=== PATIENT | male | born 1975 | race Caucasian/White ===

== ENCOUNTER 2017-05-02 05:41 | Emergency (ER) | payer OTHER ==
[~2017-05-02] VITALS: Ht 182.9 cm; Wt 90.7 kg
[~2017-05-02 05:41] MED LIST: CEPH500 PO; CLIN150 PO; CRUTCH3 USE; DESO.25TC TOP; DIAZ5 PO; ERYT500 PO; HYDACE5 PO; META800 PO; METR250 PO; NAPR500 PO; OXYACE5T PO; PROACE100 PO; RXHYDACE PO; RXOXYACE PO; RXPROACE PO; RXPROM25 PO; TRAM50 PO
[2017-05-02 06:23] LABS: BASOPHILS ABSOLUTE AUTO 0.03 K/mm3 (0.00-0.23); BASOPHILS PERCENT AUTO 0 % (0-2); EOSINOPHILS ABSOLUTE AUTO 0.38 K/mm3 (0.00-0.68); EOSINOPHILS PERCENT AUTO 4 % (0-6); Hematocrit 42.4 % (37.0-53.0); Hemoglobin 14.8 g/dL (13.5-17.5); IMMATURE GRAN ABSOLUTE AUTO 0.03 K/mm3 (0.00-0.10); IMMATURE GRAN PERCENT AUTO 0 % (0-1); LYMPHOCYTES ABSOLUTE AUTO 3.23 K/mm3 (0.84-5.20); LYMPHOCYTES PERCENT AUTO 37 % (21-46); MONOCYTES ABSOLUTE AUTO 0.49 K/mm3 (0.16-1.47); MONOCYTES PERCENT AUTO 6 % (4-13); Mean Corpuscular HGB 33.5 pg (26.0-34.0); Mean Corpuscular HGB Conc 34.9 g/dL (31.5-36.5); Mean Corpuscular Volume 96 fL (80-100); Mean Platelet Volume 9.6 fL (9.1-12.4); NEUTROPHILS ABSOLUTE AUTO 4.68 K/mm3 (1.96-9.15); NEUTROPHILS PERCENT AUTO 53 % (41-73); Platelet Count 283 K/mm3 (150-400); RDW Coefficient Variation 12.4 % (11.7-14.2); RDW Standard Deviation 43.1 fL (35.1-46.3); Red Blood Cell Count 4.42 M/mm3 (4.30-5.90); White Blood Cell Count 8.84 K/mm3 (4.00-11.30)
[2017-05-02 06:44] LABS: Alanine Aminotransfer (ALT/SGP 31 U/L (12-78); Albumin, Blood 3.9 g/dL (3.4-5.0); Albumin/Globulin Ratio 1.1 (0.8-1.8); Alk Phos 93 U/L (50-136); Anion Gap 10 mmol/L (6-16); Aspartate Aminotrans (AST/SGOT 21 U/L (12-37); Bilirubin, Total 0.4 mg/dL (0.1-1.0); Blood Urea Nitrogen 16 mg/dL (8-24); Bun/Creatinine Ratio 17.2 (12.0-20.0); CO2, Blood 22 mmol/L (21-32); Calcium, Blood 9.2 mg/dL (8.5-10.1); Chloride, Blood 105 mmol/L (98-108); Creatinine, Blood 0.93 mg/dL (0.60-1.20); Globulin, Blood 3.7 g/dL (2.2-4.0); Glomerular Filtration Rate >60 (60-); Glucose, Blood 110 mg/dL (70-99); Potassium, Blood 3.7 mmol/L (3.5-5.5); Sodium, Blood 137 mmol/L (136-145); Total Protein, Blood 7.6 g/dL (6.4-8.2)
[2017-05-02] MEDS ORDERED: Carafate1 GM/10 ML PO (07:48)
[2017-05-02] MEDS ORDERED: Protonix40 MG PO (07:48)
[2017-05-02] MEDS ORDERED: Ultram50 MG PO (07:48)
== END 2017-05-02 08:02 | disposition home or self-care (01) ==
LOC: ER 05:41
PROVIDERS: Emergency Medicine
DX: R10.32 Left lower quadrant pain (principal); F17.200 Nicotine dependence, unspecified, uncomplicated; Z88.0 Allergy status to penicillin
CPT/HCPCS: 36415; 74176; 80053; 83690; 85025; 96361; 96374; 96375; 99284; J1170; J1885; J2405; J7030

== ENCOUNTER 2017-05-09 01:50 | Emergency (ER) | payer OTHER ==
[~2017-05-09] VITALS: Ht 182.9 cm; Wt 90.7 kg
[~2017-05-09 01:50] MED LIST changes: +Carafate1 GM/10 ML PO; +Protonix40 MG PO; +Ultram50 MG PO
[2017-05-09] MEDS ORDERED: VARE1 PO (02:06)
[2017-05-09 02:27] LABS: BASOPHILS ABSOLUTE AUTO 0.03 K/mm3 (0.00-0.23); BASOPHILS PERCENT AUTO 0 % (0-2); EOSINOPHILS ABSOLUTE AUTO 0.25 K/mm3 (0.00-0.68); EOSINOPHILS PERCENT AUTO 2 % (0-6); Hematocrit 38.1 % (37.0-53.0); Hemoglobin 13.3 g/dL (13.5-17.5); IMMATURE GRAN ABSOLUTE AUTO 0.03 K/mm3 (0.00-0.10); IMMATURE GRAN PERCENT AUTO 0 % (0-1); LYMPHOCYTES ABSOLUTE AUTO 1.69 K/mm3 (0.84-5.20); LYMPHOCYTES PERCENT AUTO 12 % (21-46); MONOCYTES ABSOLUTE AUTO 1.32 K/mm3 (0.16-1.47); MONOCYTES PERCENT AUTO 9 % (4-13); Mean Corpuscular HGB 33.3 pg (26.0-34.0); Mean Corpuscular HGB Conc 34.9 g/dL (31.5-36.5); Mean Corpuscular Volume 95 fL (80-100); Mean Platelet Volume 9.2 fL (9.1-12.4); NEUTROPHILS ABSOLUTE AUTO 10.87 K/mm3 (1.96-9.15); NEUTROPHILS PERCENT AUTO 77 % (41-73); Platelet Count 307 K/mm3 (150-400); RDW Coefficient Variation 12.2 % (11.7-14.2); RDW Standard Deviation 42.6 fL (35.1-46.3); White Blood Cell Count 14.19 K/mm3 (4.00-11.30)
[2017-05-09 02:38] LABS: Alanine Aminotransfer (ALT/SGP 29 U/L (12-78); Albumin, Blood 3.3 g/dL (3.4-5.0); Albumin/Globulin Ratio 0.8 (0.8-1.8); Alk Phos 93 U/L (50-136); Anion Gap 10 mmol/L (6-16); Aspartate Aminotrans (AST/SGOT 21 U/L (12-37); Bilirubin, Total 0.5 mg/dL (0.1-1.0); Blood Urea Nitrogen 7 mg/dL (8-24); Bun/Creatinine Ratio 8.7 (12.0-20.0); CO2, Blood 24 mmol/L (21-32); Calcium, Blood 8.6 mg/dL (8.5-10.1); Chloride, Blood 102 mmol/L (98-108); Creatinine, Blood 0.81 mg/dL (0.60-1.20); Globulin, Blood 4.2 g/dL (2.2-4.0); Glomerular Filtration Rate >60 (60-); Glucose, Blood 109 mg/dL (70-99); Potassium, Blood 3.5 mmol/L (3.5-5.5); Sodium, Blood 136 mmol/L (136-145); Total Protein, Blood 7.5 g/dL (6.4-8.2)
[2017-05-09] MEDS ORDERED: Zofran Odt4 MG PO (03:40)
== END 2017-05-09 03:55 | disposition home or self-care (01) ==
LOC: ER 01:50
PROVIDERS: Emergency Medicine
DX: R10.13 Epigastric pain (principal); F17.200 Nicotine dependence, unspecified, uncomplicated; Z88.0 Allergy status to penicillin; Z79.899 Other long term (current) drug therapy
CPT/HCPCS: 36415; 74022; 80053; 83690; 85025; 96374; 99283; J1630

== ENCOUNTER 2019-02-22 08:04 | Emergency (ER) | payer OTHER ==
[~2019-02-22] VITALS: Ht 182.9 cm; Wt 86.2 kg
[~2019-02-22 08:04] MED LIST changes: +VARE1 PO; +Zofran Odt4 MG PO
[2019-02-22 08:48] LABS: BASOPHILS ABSOLUTE AUTO 0.05 K/mm3 (0.00-0.23); BASOPHILS PERCENT AUTO 1 % (0-2); EOSINOPHILS ABSOLUTE AUTO 0.34 K/mm3 (0.00-0.68); EOSINOPHILS PERCENT AUTO 5 % (0-6); Hematocrit 38.7 % (37.0-53.0); Hemoglobin 13.4 g/dL (13.5-17.5); IMMATURE GRAN ABSOLUTE AUTO 0.03 K/mm3 (0.00-0.10); IMMATURE GRAN PERCENT AUTO 0 % (0-1); LYMPHOCYTES ABSOLUTE AUTO 2.08 K/mm3 (0.84-5.20); LYMPHOCYTES PERCENT AUTO 29 % (21-46); MONOCYTES ABSOLUTE AUTO 0.56 K/mm3 (0.16-1.47); MONOCYTES PERCENT AUTO 8 % (4-13); Mean Corpuscular HGB 34.4 pg (26.0-34.0); Mean Corpuscular HGB Conc 34.6 g/dL (31.5-36.5); Mean Corpuscular Volume 100 fL (80-100); Mean Platelet Volume 9.4 fL (9.1-12.4); NEUTROPHILS ABSOLUTE AUTO 4.21 K/mm3 (1.96-9.15); NEUTROPHILS PERCENT AUTO 58 % (41-73); Platelet Count 261 K/mm3 (150-400); RDW Coefficient Variation 11.8 % (11.7-14.2); RDW Standard Deviation 42.7 fL (35.1-46.3); Red Blood Cell Count 3.89 M/mm3 (4.30-5.90); White Blood Cell Count 7.27 K/mm3 (4.00-11.30)
[2019-02-22 09:01] LABS: Alanine Aminotransfer (ALT/SGP 22 U/L (12-78); Albumin, Blood 3.8 g/dL (3.4-5.0); Albumin/Globulin Ratio 1.1 (0.8-1.8); Alk Phos 86 U/L (50-136); Anion Gap 7 mmol/L (6-16); Aspartate Aminotrans (AST/SGOT 22 U/L (12-37); Bilirubin, Total 0.2 mg/dL (0.1-1.0); Blood Urea Nitrogen 17 mg/dL (8-24); Bun/Creatinine Ratio 20.2 (12.0-20.0); CO2, Blood 24 mmol/L (21-32); Calcium, Blood 8.5 mg/dL (8.5-10.1); Chloride, Blood 109 mmol/L (98-108); Creatinine, Blood 0.84 mg/dL (0.60-1.20); Globulin, Blood 3.4 g/dL (2.2-4.0); Glomerular Filtration Rate >60 (60-); Glucose, Blood 89 mg/dL (70-99); Potassium, Blood 3.6 mmol/L (3.5-5.5); Sodium, Blood 140 mmol/L (136-145); Total Protein, Blood 7.2 g/dL (6.4-8.2)
[2019-02-22] MEDS ORDERED: Prilosec Otc20 MG PO (09:47)
== END 2019-02-22 10:00 | disposition home or self-care (01) ==
LOC: ER 08:04
PROVIDERS: Emergency Medicine
DX: K27.9 Peptic ulcer, site unspecified, unspecified as acute or chronic, without hemorrhage or perforation (principal); F17.200 Nicotine dependence, unspecified, uncomplicated; Z88.0 Allergy status to penicillin
CPT/HCPCS: 36415; 80053; 83690; 85025; 96374; 99283-25; J2405

== ENCOUNTER 2019-03-29 17:07 | Emergency (ER) | payer OTHER ==
[~2019-03-29] VITALS: Ht 182.9 cm; Wt 90.7 kg
[~2019-03-29 17:07] MED LIST changes: +Prilosec Otc20 MG PO
[2019-03-29] MEDS ORDERED: KEFLEX500 MG PO (17:16)
[2019-03-29] MEDS ORDERED: Cleocin HCl150 MG PO (17:47)
[2019-03-29] MEDS ORDERED: Norco 5-325 Ta1 EACH PO (17:47)
== END 2019-03-29 17:51 | disposition home or self-care (01) ==
LOC: ER 17:07
DX: K04.7 Periapical abscess without sinus (principal); K02.9 Dental caries, unspecified; F17.200 Nicotine dependence, unspecified, uncomplicated
CPT/HCPCS: 41800; 99283-25

== ENCOUNTER 2019-08-31 08:47 | Emergency (ER) | payer OTHER ==
[~2019-08-31] VITALS: Ht 182.9 cm; Wt 90.7 kg
[~2019-08-31 08:47] MED LIST changes: +Cleocin HCl150 MG PO; +KEFLEX500 MG PO; +Norco 5-325 Ta1 EACH PO
[2019-08-31 10:49] LABS: BASOPHILS ABSOLUTE AUTO 0.02 K/mm3 (0.00-0.23); BASOPHILS PERCENT AUTO 0 % (0-2); EOSINOPHILS ABSOLUTE AUTO 0.06 K/mm3 (0.00-0.68); EOSINOPHILS PERCENT AUTO 1 % (0-6); Hematocrit 41.3 % (37.0-53.0); Hemoglobin 14.7 g/dL (13.5-17.5); IMMATURE GRAN ABSOLUTE AUTO 0.01 K/mm3 (0.00-0.10); IMMATURE GRAN PERCENT AUTO 0 % (0-1); LYMPHOCYTES ABSOLUTE AUTO 1.42 K/mm3 (0.84-5.20); LYMPHOCYTES PERCENT AUTO 16 % (21-46); MONOCYTES ABSOLUTE AUTO 0.68 K/mm3 (0.16-1.47); MONOCYTES PERCENT AUTO 8 % (4-13); Mean Corpuscular HGB 33.7 pg (26.0-34.0); Mean Corpuscular HGB Conc 35.6 g/dL (31.5-36.5); Mean Corpuscular Volume 95 fL (80-100); NEUTROPHILS ABSOLUTE AUTO 6.47 K/mm3 (1.96-9.15); NEUTROPHILS PERCENT AUTO 75 % (41-73); Platelet Count 243 K/mm3 (150-400); RDW Standard Deviation 42.3 fL (35.1-46.3); Red Blood Cell Count 4.36 M/mm3 (4.30-5.90); White Blood Cell Count 8.66 K/mm3 (4.00-11.30)
[2019-08-31 10:54] LABS: Source, Urine Clean Catch
[2019-08-31 11:01] LABS: Bilirubin, Urine Neg (Neg); Blood, Urine Neg (Neg); Glucose Qualitative, Urine Neg (Neg); Ketones, Urine 1+ (Neg); Leukocyte Esterase, Urine 1+ (Neg); Nitrite, Urine Neg (Neg); Protein, Urine 2+ (Neg); Urobilinogen, Urine 2+ (Normal)
[2019-08-31 11:10] LABS: Appearance, Urine Clear (Clear); Color, Urine Yellow (P-Yellow)
[2019-08-31 11:12] LABS: Bacteria Mod /hpf; Red Blood Cells, Urine 0-2 /hpf (0-2); Squamous Epithelial Cells Rare /hpf (Few)
[2019-08-31 11:13] LABS: Mucus Heavy (0-Heavy)
[2019-08-31 11:16] LABS: Alanine Aminotransfer (ALT/SGP 27 U/L (12-78); Albumin, Blood 3.8 g/dL (3.4-5.0); Albumin/Globulin Ratio 0.9 (0.8-1.8); Alk Phos 83 U/L (50-136); Anion Gap 10 mmol/L (6-16); Aspartate Aminotrans (AST/SGOT 23 U/L (12-37); Bilirubin, Total 0.5 mg/dL (0.1-1.0); Blood Urea Nitrogen 10 mg/dL (8-24); Bun/Creatinine Ratio 11.4 (12.0-20.0); CO2, Blood 22 mmol/L (21-32); Calcium, Blood 9.1 mg/dL (8.5-10.1); Chloride, Blood 105 mmol/L (98-108); Creatinine, Blood 0.88 mg/dL (0.60-1.20); Globulin, Blood 4.1 g/dL (2.2-4.0); Glomerular Filtration Rate >60 (60-); Glucose, Blood 122 mg/dL (70-99); Sodium, Blood 137 mmol/L (136-145); Total Protein, Blood 7.9 g/dL (6.4-8.2); Troponin I <0.015 ng/mL (0.000-0.040)
[2019-08-31] MEDS ORDERED: OMEP20ER PO (12:02)
[2019-08-31] MEDS ORDERED: SUCR1 PO (12:02)
== END 2019-08-31 12:14 | disposition home or self-care (01) ==
LOC: ER 08:47
PROVIDERS: Emergency Medicine
DX: R10.12 Left upper quadrant pain (principal); F17.210 Nicotine dependence, cigarettes, uncomplicated
CPT/HCPCS: 36415; 80053; 81001; 83690; 84484; 85025; 87086; 93005; 93010; 96361; 96374; 96375; 99284-25; J1170; J2405; J7120

== ENCOUNTER 2020-03-13 22:00 | Emergency (ER) | payer OTHER ==
[~2020-03-13] VITALS: Ht 182.9 cm; Wt 90.7 kg
[~2020-03-13 22:00] MED LIST changes: +OMEP20ER PO; +SUCR1 PO; +Sucralfate1 GM PO
[2020-03-13 23:14] LABS: BASOPHILS ABSOLUTE AUTO 0.05 K/mm3 (0.00-0.23); BASOPHILS PERCENT AUTO 0 % (0-2); EOSINOPHILS ABSOLUTE AUTO 0.26 K/mm3 (0.00-0.68); EOSINOPHILS PERCENT AUTO 2 % (0-6); Hematocrit 42.2 % (37.0-53.0); Hemoglobin 14.1 g/dL (13.5-17.5); IMMATURE GRAN ABSOLUTE AUTO 0.04 K/mm3 (0.00-0.10); IMMATURE GRAN PERCENT AUTO 0 % (0-1); LYMPHOCYTES ABSOLUTE AUTO 2.42 K/mm3 (0.84-5.20); LYMPHOCYTES PERCENT AUTO 20 % (21-46); MONOCYTES PERCENT AUTO 5 % (4-13); Mean Corpuscular HGB 32.9 pg (26.0-34.0); Mean Corpuscular HGB Conc 33.4 g/dL (31.5-36.5); Mean Corpuscular Volume 98 fL (80-100); Mean Platelet Volume 8.8 fL (9.1-12.4); NEUTROPHILS ABSOLUTE AUTO 8.82 K/mm3 (1.96-9.15); NEUTROPHILS PERCENT AUTO 72 % (41-73); Platelet Count 299 K/mm3 (150-400); RDW Coefficient Variation 12.3 % (11.7-14.2); RDW Standard Deviation 44.5 fL (35.1-46.3); Red Blood Cell Count 4.29 M/mm3 (4.30-5.90); White Blood Cell Count 12.19 K/mm3 (4.00-11.30)
[2020-03-13 23:29] LABS: International Normalized Ratio 0.93
[2020-03-13 23:31] LABS: Alanine Aminotransfer (ALT/SGP 32 U/L (12-78); Albumin, Blood 3.7 g/dL (3.4-5.0); Albumin/Globulin Ratio 1.1 (0.8-1.8); Alk Phos 110 U/L (50-136); Anion Gap 2 mmol/L (6-16); Aspartate Aminotrans (AST/SGOT 18 U/L (12-37); Bilirubin, Total 0.2 mg/dL (0.1-1.0); Blood Urea Nitrogen 10 mg/dL (8-24); Bun/Creatinine Ratio 10.6 (12.0-20.0); CO2, Blood 30 mmol/L (21-32); Calcium, Blood 8.7 mg/dL (8.5-10.1); Chloride, Blood 107 mmol/L (98-108); Creatinine, Blood 0.94 mg/dL (0.60-1.20); Globulin, Blood 3.5 g/dL (2.2-4.0); Glomerular Filtration Rate >60 (60-); Glucose, Blood 115 mg/dL (70-99); Potassium, Blood 3.4 mmol/L (3.5-5.5); Sodium, Blood 139 mmol/L (136-145); Total Protein, Blood 7.2 g/dL (6.4-8.2)
== END 2020-03-14 02:23 | disposition left against medical advice (07) ==
LOC: ER 22:00
PROVIDERS: Emergency Medicine
DX: L03.113 Cellulitis of right upper limb (principal); R20.0 Anesthesia of skin; F17.210 Nicotine dependence, cigarettes, uncomplicated; Z88.0 Allergy status to penicillin
CPT/HCPCS: 20605; 36415; 73070; 80053; 83605; 85025; 85610; 85651; 85730; 86140; 99283-25

== ENCOUNTER 2020-12-07 22:48 | Emergency (ER) | payer OTHER ==
[~2020-12-07] VITALS: Ht 182.9 cm; Wt 90.7 kg
== END 2020-12-08 00:20 | disposition home or self-care (01) ==
LOC: ER 22:48
DX: U07.1 COVID-19 (principal); Z88.0 Allergy status to penicillin; F17.210 Nicotine dependence, cigarettes, uncomplicated
CPT/HCPCS: 36415; 93005; 93010; 99283-25

== ENCOUNTER 2023-12-25 09:31 | Emergency (ER) | payer MEDICARE, OTHER ==
[~2023-12-25] VITALS: Ht 182.9 cm; Wt 88.5 kg
[2023-12-25] MEDS ORDERED: LORazepam 1 MG Tab PO ONE (10:30)
[2023-12-25] MEDS ORDERED: Ketorolac Tromethamine 30mg Vial IM ONE (10:30)
[2023-12-25] MEDS ORDERED: CefTRIAXone 1000 MG Vial IM ONE (11:15)
[2023-12-25] MEDS ORDERED: Doxycycline Hyclate 100 MG TAB PO ONE (11:15)
[2023-12-25] MEDS ORDERED: OXAYDO5 M2 PO (11:32)
[2023-12-25] MEDS ORDERED: DOXY100 PO (12:49)
== END 2023-12-25 11:40 | disposition home or self-care (01) ==
LOC: ER 09:31
DX: N45.1 Epididymitis (principal); F17.210 Nicotine dependence, cigarettes, uncomplicated; Z88.0 Allergy status to penicillin; Z88.5 Allergy status to narcotic agent
CPT/HCPCS: 76870; 96372; 99284-25; A9270; J0696; J1885

== ENCOUNTER 2024-04-03 00:14 | Emergency (ER) | payer MEDICARE, OTHER ==
[~2024-04-03] VITALS: Ht 182.9 cm; Wt 85.7 kg
[~2024-04-03 00:14] MED LIST changes: +DOXY100 PO; +OXAYDO5 M2 PO
[2024-04-03 00:20] VITALS: BP 146/88
[2024-04-03 01:24] LABS: BASOPHILS ABSOLUTE AUTO 0.05 K/mm3 (0.00-0.23); BASOPHILS PERCENT AUTO 1 % (0-2); EOSINOPHILS PERCENT AUTO 4 % (0-6); Hematocrit 42.8 % (37.0-53.0); Hemoglobin 15.3 g/dL (13.5-17.5); IMMATURE GRAN ABSOLUTE AUTO 0.02 K/mm3 (0.00-0.10); IMMATURE GRAN PERCENT AUTO 0 % (0-1); LYMPHOCYTES ABSOLUTE AUTO 2.99 K/mm3 (0.84-5.20); LYMPHOCYTES PERCENT AUTO 37 % (21-46); MONOCYTES ABSOLUTE AUTO 0.58 K/mm3 (0.16-1.47); MONOCYTES PERCENT AUTO 7 % (4-13); Mean Corpuscular HGB 33.5 pg (26.0-34.0); Mean Corpuscular HGB Conc 35.7 g/dL (31.5-36.5); Mean Corpuscular Volume 94 fL (80-100); Mean Platelet Volume 9.1 fL (9.1-12.4); NEUTROPHILS ABSOLUTE AUTO 4.14 K/mm3 (1.96-9.15); NEUTROPHILS PERCENT AUTO 51 % (41-73); Platelet Count 331 K/mm3 (150-400); RDW Coefficient Variation 11.8 % (11.7-14.2); RDW Standard Deviation 40.4 fL (35.1-46.3); Red Blood Cell Count 4.57 M/mm3 (4.30-5.90); White Blood Cell Count 8.08 K/mm3 (4.00-11.30)
[2024-04-03 01:36] LABS: Albumin, Blood 3.7 g/dL (3.4-5.0); Albumin/Globulin Ratio 0.9 (0.8-1.8); Bilirubin, Total 0.2 mg/dL (0.1-1.0); Bun/Creatinine Ratio 14.1 (12.0-20.0); Calcium, Blood 9.3 mg/dL (8.5-10.1); Creatinine, Blood 0.85 mg/dL (0.60-1.20); Globulin, Blood 3.9 g/dL (2.2-4.0); Potassium, Blood 3.7 mmol/L (3.5-5.5); Total Protein, Blood 7.6 g/dL (6.4-8.2)
== END 2024-04-03 01:39 | disposition left against medical advice (07) ==
LOC: ER 00:14
PROVIDERS: Emergency Medicine
DX: Z53.21 Procedure and treatment not carried out due to patient leaving prior to being seen by health care provider (principal)
CPT/HCPCS: 80053; 85025

== ENCOUNTER 2024-06-02 11:24 | Emergency (ER) | payer MEDICARE, OTHER ==
[~2024-06-02] VITALS: Ht 182.9 cm; Wt 85.7 kg
[2024-06-02 11:47] VITALS: BP 143/95
[2024-06-02] MEDS ORDERED: Ketorolac Tromethamine 15mg Vial IV ONE (11:50)
[2024-06-02] MEDS ORDERED: Ondansetron HCl 2 MG / ML 2ML Vial IV ONE (11:50)
[2024-06-02 12:05] LABS: BASOPHILS ABSOLUTE AUTO 0.06 K/mm3 (0.00-0.23); BASOPHILS PERCENT AUTO 1 % (0-2); EOSINOPHILS ABSOLUTE AUTO 0.39 K/mm3 (0.00-0.68); EOSINOPHILS PERCENT AUTO 6 % (0-6); Hematocrit 43.2 % (37.0-53.0); IMMATURE GRAN ABSOLUTE AUTO 0.02 K/mm3 (0.00-0.10); IMMATURE GRAN PERCENT AUTO 0 % (0-1); LYMPHOCYTES ABSOLUTE AUTO 2.43 K/mm3 (0.84-5.20); LYMPHOCYTES PERCENT AUTO 34 % (21-46); MONOCYTES ABSOLUTE AUTO 0.57 K/mm3 (0.16-1.47); MONOCYTES PERCENT AUTO 8 % (4-13); Mean Corpuscular HGB 33.1 pg (26.0-34.0); Mean Corpuscular HGB Conc 34.7 g/dL (31.5-36.5); Mean Corpuscular Volume 95 fL (80-100); Mean Platelet Volume 8.8 fL (9.1-12.4); NEUTROPHILS ABSOLUTE AUTO 3.68 K/mm3 (1.96-9.15); NEUTROPHILS PERCENT AUTO 51 % (41-73); Platelet Count 300 K/mm3 (150-400); RDW Coefficient Variation 12.6 % (11.7-14.2); RDW Standard Deviation 44.4 fL (35.1-46.3); Red Blood Cell Count 4.53 M/mm3 (4.30-5.90); White Blood Cell Count 7.15 K/mm3 (4.00-11.30)
[2024-06-02 12:45] LABS: Albumin, Blood 3.9 g/dL (3.4-5.0); Albumin/Globulin Ratio 1.1 (0.8-1.8); Bilirubin, Total 0.3 mg/dL (0.1-1.0); Bun/Creatinine Ratio 15.2 (12.0-20.0); Creatinine, Blood 0.85 mg/dL (0.60-1.20); Globulin, Blood 3.6 g/dL (2.2-4.0); Total Protein, Blood 7.5 g/dL (6.4-8.2)
== END 2024-06-02 13:52 | disposition left against medical advice (07) ==
LOC: ER 11:24
PROVIDERS: Physician Assistant
DX: N50.819 Testicular pain, unspecified (principal); R10.9 Unspecified abdominal pain; R07.9 Chest pain, unspecified; Z53.29 Procedure and treatment not carried out because of patient's decision for other reasons
CPT/HCPCS: 76870; 80053; 85025; 96374; 96375; 99283-25; J1885; J2405

== ENCOUNTER 2024-07-29 15:18 | Emergency (ER) | payer MEDICARE, OTHER ==
[~2024-07-29] VITALS: Ht 182.9 cm; Wt 86.6 kg
[2024-07-29 15:31] VITALS: BP 138/97
[2024-07-29] MEDS ORDERED: Ondansetron HCl 2 MG / ML 2ML Vial IV ONE (15:35)
[2024-07-29] MEDS ORDERED: Ketorolac Tromethamine 15mg Vial IV ONE (15:35)
[2024-07-29 15:48] LABS: BASOPHILS ABSOLUTE AUTO 0.08 K/mm3 (0.00-0.23); BASOPHILS PERCENT AUTO 1 % (0-2); EOSINOPHILS ABSOLUTE AUTO 0.38 K/mm3 (0.00-0.68); EOSINOPHILS PERCENT AUTO 4 % (0-6); Hematocrit 44.4 % (37.0-53.0); Hemoglobin 15.6 g/dL (13.5-17.5); IMMATURE GRAN ABSOLUTE AUTO 0.01 K/mm3 (0.00-0.10); IMMATURE GRAN PERCENT AUTO 0 % (0-1); LYMPHOCYTES ABSOLUTE AUTO 3.53 K/mm3 (0.84-5.20); LYMPHOCYTES PERCENT AUTO 39 % (21-46); MONOCYTES PERCENT AUTO 8 % (4-13); Mean Corpuscular HGB 33.3 pg (26.0-34.0); Mean Corpuscular HGB Conc 35.1 g/dL (31.5-36.5); Mean Corpuscular Volume 95 fL (80-100); NEUTROPHILS ABSOLUTE AUTO 4.47 K/mm3 (1.96-9.15); NEUTROPHILS PERCENT AUTO 49 % (41-73); Platelet Count 330 K/mm3 (150-400); RDW Coefficient Variation 12.4 % (11.7-14.2); RDW Standard Deviation 43.4 fL (35.1-46.3); Red Blood Cell Count 4.69 M/mm3 (4.30-5.90); White Blood Cell Count 9.17 K/mm3 (4.00-11.30)
[2024-07-29 16:08] LABS: Albumin/Globulin Ratio 1.1 (0.8-1.8); Bilirubin, Total 0.4 mg/dL (0.1-1.0); Bun/Creatinine Ratio 12.8 (12.0-20.0); Creatinine, Blood 0.86 mg/dL (0.60-1.20); Globulin, Blood 3.6 g/dL (2.2-4.0); Potassium, Blood 3.9 mmol/L (3.5-5.5); Total Protein, Blood 7.6 g/dL (6.4-8.2)
== END 2024-07-29 16:36 | disposition left against medical advice (07) ==
LOC: ER 15:18
PROVIDERS: Physician Assistant
DX: R10.31 Right lower quadrant pain (principal); Z53.21 Procedure and treatment not carried out due to patient leaving prior to being seen by health care provider
CPT/HCPCS: 74177; 80053; 83690; 85025; 96374; 96375; 99281-25; J1885; J2405; Q9967

== ENCOUNTER 2024-12-16 23:37 | Emergency (ER) | payer MEDICARE, OTHER ==
[~2024-12-16] VITALS: Ht 182.9 cm; Wt 83.9 kg
[~2024-12-16 23:37] MED LIST changes: +ACET500 PO; +CLIN300 PO; +Golytely Solu4000 ML PO; +IBUP600 PO; +MIRALAX17 GM PO; +OXYC5 PO
[2024-12-16] MEDS ORDERED: Ondansetron HCl 2 MG / ML 2ML Vial IV ONE (23:55)
[2024-12-17 00:52] LABS: BASOPHILS ABSOLUTE AUTO 0.04 K/mm3 (0.00-0.23); BASOPHILS PERCENT AUTO 1 % (0-2); EOSINOPHILS ABSOLUTE AUTO 0.25 K/mm3 (0.00-0.68); EOSINOPHILS PERCENT AUTO 3 % (0-6); Hematocrit 38.5 % (37.0-53.0); Hemoglobin 13.5 g/dL (13.5-17.5); IMMATURE GRAN ABSOLUTE AUTO 0.01 K/mm3 (0.00-0.10); IMMATURE GRAN PERCENT AUTO 0 % (0-1); LYMPHOCYTES ABSOLUTE AUTO 1.98 K/mm3 (0.84-5.20); LYMPHOCYTES PERCENT AUTO 27 % (21-46); MONOCYTES ABSOLUTE AUTO 0.50 K/mm3 (0.16-1.47); MONOCYTES PERCENT AUTO 7 % (4-13); Mean Corpuscular HGB Conc 35.1 g/dL (31.5-36.5); Mean Corpuscular Volume 95 fL (80-100); NEUTROPHILS ABSOLUTE AUTO 4.62 K/mm3 (1.96-9.15); NEUTROPHILS PERCENT AUTO 62 % (41-73); NRBC ABSOLUTE 0.00 K/mm3 (0.00-0.02); NRBC Auto 0.0 /100 WBC (0.0-0.2); Platelet Count 270 K/mm3 (150-400); RDW Coefficient Variation 12.0 % (11.7-14.2); RDW Standard Deviation 42.0 fL (35.1-46.3)
[2024-12-17] MEDS ORDERED: ESCI10 PO (01:18)
[2024-12-17 01:19] LABS: Alanine Aminotransfer (ALT/SGP 24.0 U/L (12-78); Albumin, Blood 3.5 g/dL (3.4-5.0); Albumin/Globulin Ratio 1.1 (0.8-1.8); Anion Gap 6.0 mmol/L (3-11); Aspartate Aminotrans (AST/SGOT 19.0 U/L (12-37); Bilirubin, Total 0.3 mg/dL (0.1-1.0); Blood Urea Nitrogen 8.0 mg/dL (8-24); CO2, Blood 27.0 mmol/L (21-32); Calcium, Blood 7.9 mg/dL (8.5-10.1); Chloride, Blood 108.0 mmol/L (98-108); Creatinine, Blood 0.8 mg/dL (0.60-1.20); Globulin, Blood 3.2 g/dL (2.2-4.0); Glucose, Blood 94.0 mg/dL (70-99); Magnesium, Blood 2.0 mg/dL (1.6-2.4); Potassium, Blood 3.3 mmol/L (3.5-5.5); Sodium, Blood 138.0 mmol/L (136-145); Total Protein, Blood 6.7 g/dL (6.4-8.2)
[2024-12-17 02:28] LABS: Source, Urine Clean Catch
[2024-12-17 02:30] VITALS: BP 147/101
[2024-12-17 02:33] LABS: Bilirubin, Urine Neg (Neg); Glucose Qualitative, Urine Neg (Neg); Ketones, Urine Neg (Neg); Leukocyte Esterase, Urine Neg (Neg); Protein, Urine 1+ (Neg); Specific Gravity, Urine 1.020 (1.003-1.022); Urobilinogen, Urine NORM (Normal)
[2024-12-17 02:36] LABS: Color, Urine Yellow (P-Yellow)
== END 2024-12-17 02:36 | disposition home or self-care (01) ==
LOC: ER 23:37
PROVIDERS: Emergency Medicine
DX: K40.20 Bilateral inguinal hernia, without obstruction or gangrene, not specified as recurrent (principal); E87.6 Hypokalemia; E83.51 Hypocalcemia; M06.9 Rheumatoid arthritis, unspecified; F17.210 Nicotine dependence, cigarettes, uncomplicated; Z88.0 Allergy status to penicillin; Z88.5 Allergy status to narcotic agent
CPT/HCPCS: 74177; 80053; 83690; 83735; 85025; 96374-59; 99284; A9270; J2405; Q9967

== ENCOUNTER 2024-12-19 15:27 | Emergency (ER) | payer MEDICARE, OTHER ==
[~2024-12-19] VITALS: Ht 182.9 cm; Wt 86.2 kg
[~2024-12-19 15:27] MED LIST changes: +ESCI10 PO
[2024-12-19 19:33] LABS: BASOPHILS ABSOLUTE AUTO 0.04 K/mm3 (0.00-0.23); BASOPHILS PERCENT AUTO 1 % (0-2); EOSINOPHILS ABSOLUTE AUTO 0.22 K/mm3 (0.00-0.68); EOSINOPHILS PERCENT AUTO 3 % (0-6); Hematocrit 41.6 % (37.0-53.0); Hemoglobin 14.7 g/dL (13.5-17.5); IMMATURE GRAN ABSOLUTE AUTO 0.01 K/mm3 (0.00-0.10); IMMATURE GRAN PERCENT AUTO 0 % (0-1); LYMPHOCYTES ABSOLUTE AUTO 2.24 K/mm3 (0.84-5.20); LYMPHOCYTES PERCENT AUTO 30 % (21-46); MONOCYTES ABSOLUTE AUTO 0.60 K/mm3 (0.16-1.47); MONOCYTES PERCENT AUTO 8 % (4-13); Mean Corpuscular HGB Conc 35.3 g/dL (31.5-36.5); Mean Corpuscular Volume 94 fL (80-100); NEUTROPHILS ABSOLUTE AUTO 4.37 K/mm3 (1.96-9.15); NEUTROPHILS PERCENT AUTO 59 % (41-73); NRBC ABSOLUTE 0.00 K/mm3 (0.00-0.02); NRBC Auto 0.0 /100 WBC (0.0-0.2); Platelet Count 281 K/mm3 (150-400); RDW Coefficient Variation 12.1 % (11.7-14.2); RDW Standard Deviation 42.2 fL (35.1-46.3)
[2024-12-19 20:29] LABS: Alanine Aminotransfer (ALT/SGP 26.0 U/L (12-78); Albumin, Blood 3.8 g/dL (3.4-5.0); Albumin/Globulin Ratio 1.1 (0.8-1.8); Anion Gap 7.0 mmol/L (3-11); Aspartate Aminotrans (AST/SGOT 20.0 U/L (12-37); Bilirubin, Total 0.5 mg/dL (0.1-1.0); Blood Urea Nitrogen 11.0 mg/dL (8-24); CO2, Blood 29.0 mmol/L (21-32); Calcium, Blood 9.6 mg/dL (8.5-10.1); Chloride, Blood 106.0 mmol/L (98-108); Creatinine, Blood 0.88 mg/dL (0.60-1.20); Globulin, Blood 3.5 g/dL (2.2-4.0); Glucose, Blood 108.0 mg/dL (70-99); Potassium, Blood 3.6 mmol/L (3.5-5.5); Sodium, Blood 138.0 mmol/L (136-145); Total Protein, Blood 7.3 g/dL (6.4-8.2)
[2024-12-19 21:00] VITALS: BP 135/109
== END 2024-12-19 21:31 | disposition home or self-care (01) ==
LOC: ER 15:27
PROVIDERS: Emergency Medicine
DX: I86.1 Scrotal varices (principal); K40.90 Unilateral inguinal hernia, without obstruction or gangrene, not specified as recurrent; I10 Essential (primary) hypertension; F17.210 Nicotine dependence, cigarettes, uncomplicated; Z79.899 Other long term (current) drug therapy
CPT/HCPCS: 76870; 80053; 85025; 99284-25

== ENCOUNTER 2025-01-15 19:47 | Emergency (ER) | payer MEDICARE, OTHER ==
[~2025-01-15] VITALS: Ht 182.9 cm; Wt 83.9 kg
[2025-01-15 19:51] VITALS: BP 146/95
[2025-01-15 20:30] LABS: BASOPHILS ABSOLUTE AUTO 0.04 K/mm3 (0.00-0.23); BASOPHILS PERCENT AUTO 1 % (0-2); EOSINOPHILS ABSOLUTE AUTO 0.16 K/mm3 (0.00-0.68); EOSINOPHILS PERCENT AUTO 2 % (0-6); Hematocrit 37.4 % (37.0-53.0); Hemoglobin 13.2 g/dL (13.5-17.5); IMMATURE GRAN ABSOLUTE AUTO 0.03 K/mm3 (0.00-0.10); IMMATURE GRAN PERCENT AUTO 0 % (0-1); LYMPHOCYTES ABSOLUTE AUTO 1.21 K/mm3 (0.84-5.20); LYMPHOCYTES PERCENT AUTO 14 % (21-46); MONOCYTES ABSOLUTE AUTO 0.64 K/mm3 (0.16-1.47); MONOCYTES PERCENT AUTO 8 % (4-13); Mean Corpuscular HGB Conc 35.3 g/dL (31.5-36.5); Mean Corpuscular Volume 94 fL (80-100); NEUTROPHILS ABSOLUTE AUTO 6.31 K/mm3 (1.96-9.15); NEUTROPHILS PERCENT AUTO 75 % (41-73); NRBC ABSOLUTE 0.00 K/mm3 (0.00-0.02); NRBC Auto 0.0 /100 WBC (0.0-0.2); Platelet Count 268 K/mm3 (150-400); RDW Coefficient Variation 12.1 % (11.7-14.2); RDW Standard Deviation 42.3 fL (35.1-46.3)
[2025-01-15 21:01] LABS: Alanine Aminotransfer (ALT/SGP 27.0 U/L (12-78); Albumin, Blood 3.6 g/dL (3.4-5.0); Albumin/Globulin Ratio 0.9 (0.8-1.8); Anion Gap 7.0 mmol/L (3-11); Aspartate Aminotrans (AST/SGOT 23.0 U/L (12-37); Bilirubin, Total 0.4 mg/dL (0.1-1.0); Blood Urea Nitrogen 10.0 mg/dL (8-24); CO2, Blood 25.0 mmol/L (21-32); Calcium, Blood 8.8 mg/dL (8.5-10.1); Chloride, Blood 105.0 mmol/L (98-108); Creatinine, Blood 0.7 mg/dL (0.60-1.20); Globulin, Blood 3.8 g/dL (2.2-4.0); Glucose, Blood 99.0 mg/dL (70-99); Potassium, Blood 3.3 mmol/L (3.5-5.5); Sodium, Blood 134.0 mmol/L (136-145); Total Protein, Blood 7.4 g/dL (6.4-8.2)
== END 2025-01-16 00:18 | disposition left against medical advice (07) ==
LOC: ER 19:47
PROVIDERS: Student in an Organized Health Care Education/Training Program
DX: L03.113 Cellulitis of right upper limb (principal); Z53.21 Procedure and treatment not carried out due to patient leaving prior to being seen by health care provider
CPT/HCPCS: 80053; 85025; 99281

== ENCOUNTER → 2025-01-16 | Outpatient (CLI) | payer MEDICARE, OTHER | LOC: LAB 19:40 → LAB SHORT 19:40 | DX: M71.121 Other infective bursitis, right elbow (principal) | CPT/HCPCS: 87070; 87077; 87147; 87186; 87205 ==

== ENCOUNTER 2025-01-31 17:23 | Emergency (ER) | payer MEDICARE, OTHER ==
[~2025-01-31] VITALS: Ht 182.9 cm; Wt 84.8 kg
[2025-01-31] MEDS ORDERED: LORazepam 2 MG/ML 1ML Injection IV ONE (17:45)
[2025-01-31] MEDS ORDERED: HYDROmorphone HCl/Pf 1MG SYR IV ONE (17:45)
[2025-01-31 19:15] VITALS: BP 131/91
== END 2025-01-31 19:28 | disposition home or self-care (01) ==
LOC: ER 17:23
DX: K40.90 Unilateral inguinal hernia, without obstruction or gangrene, not specified as recurrent (principal); F17.210 Nicotine dependence, cigarettes, uncomplicated
CPT/HCPCS: 74177; 96374-59; 96375; 99284-25; J1171; J2060; Q9967

== ENCOUNTER 2025-04-02 09:31 | Day surgery (SDC) | payer MEDICARE, OTHER ==
[~2025-04-02] VITALS: Ht 182.9 cm; Wt 84.1 kg
--- NOTE | 2025-04-02 10:19 | NUR ---
04/02/25 1019 Ana Cristina Omer CONFIRMED AND REVIEWED H&P, MEDCICATIONS, ALLERGIES, MEDICAL HISTORY, RESPIRATORY HISTORY, VITAL SIGNS, 3-LEAD EKG, CONSENTS, AND PHYSICIAN ORDERS. PATIENT CONFIRMS NPO STATUS AND AGREES WITH SCHEDULED PROCEDURE. MONITOR INTACT WITH CONTINUOUS PULSE OXIMETRY, CAPNOGRAPHY, 3-LEAD EKG, INTERMITTENT BP. SUPPLEMENTAL O2 TO BE TITRATED THROUGHOUT PROCEDURE TO MAINTAIN O2 SATURATION ABOVE 90%. PATIENT DETERMINED TO BE ASA APPROPRIATE FOR PROPOFOL SEDATION PRIOR TO START OF PROCEDURE BY DR. FLEMING
[2025-04-02 11:23] VITALS: BP 117/74
[2025-04-02 11:34] VITALS: BP 115/90
[2025-04-02 11:48] VITALS: BP 114/83
--- NOTE | 2025-04-02 11:51 | NUR ---
Discharge instructions reviewed with patient. Patient verbalizes understanding. Copy given to patient to take home. Patient States Post-Procedure ride home has been arranged. Discharged via wheelchair to private car for ride home.
== END 2025-04-02 11:56 | disposition home or self-care (01) ==
LOC: ORSCMMR 09:31 → ORD 10:30 → ORSCMMR 10:30
PROVIDERS: Surgery
PROC: 0DBP8ZX Excision of Rectum, Via Natural or Artificial Opening Endoscopic, Diagnostic (ICD-10-PCS; principal; 2025-04-02 10:30)
PROC: 0DBM8ZX Excision of Descending Colon, Via Natural or Artificial Opening Endoscopic, Diagnostic (ICD-10-PCS; principal; 2025-04-02 10:30)
PROC: 0DBN8ZX Excision of Sigmoid Colon, Via Natural or Artificial Opening Endoscopic, Diagnostic (ICD-10-PCS; principal; 2025-04-02 10:30)
PROC: 0DBL8ZX Excision of Transverse Colon, Via Natural or Artificial Opening Endoscopic, Diagnostic (ICD-10-PCS; principal; 2025-04-02 10:30)
DX: Z12.11 Encounter for screening for malignant neoplasm of colon (principal); D12.3 Benign neoplasm of transverse colon; D12.4 Benign neoplasm of descending colon; D12.5 Benign neoplasm of sigmoid colon; D12.8 Benign neoplasm of rectum; R19.5 Other fecal abnormalities; F17.210 Nicotine dependence, cigarettes, uncomplicated; F41.8 Other specified anxiety disorders; Z59.9 Problem related to housing and economic circumstances, unspecified
CPT/HCPCS: 88305; J2704; J7120